=== PATIENT | female | born 1940 | race Caucasian/White ===

== ENCOUNTER → 2023-11-06 11:08 | Outpatient (REF) | payer MEDICARE, OTHER, SELFPAY | LOC: HWWDC 11:08 | PROVIDERS: ATTENDING PHYSICIAN Internal Medicine | DX: Z12.31 Encounter for screening mammogram for malignant neoplasm of breast (principal) | CPT/HCPCS: 77063; 77067 ==

== ENCOUNTER → 2023-11-18 14:38 | Outpatient (REF) | payer MEDICARE, OTHER, SELFPAY | LOC: RAD 14:38 | PROVIDERS: ATTENDING PHYSICIAN Internal Medicine | DX: I73.9 Peripheral vascular disease, unspecified (principal) | CPT/HCPCS: 93922; 93925 ==

== ENCOUNTER → 2024-06-17 13:42 | Outpatient (REF) | payer MEDICARE, OTHER, SELFPAY | LOC: RAD 13:42 | PROVIDERS: ATTENDING PHYSICIAN Surgery Vascular Surgery | DX: I77.9 Disorder of arteries and arterioles, unspecified (principal); Z13.6 Encounter for screening for cardiovascular disorders | CPT/HCPCS: 76770; 93922 ==

== ENCOUNTER → 2024-10-19 11:28 | Outpatient (REF) | payer MEDICARE, OTHER, SELFPAY ==
[2024-10-19 16:12] LABS: ALT (SGPT) 28 U/L (0-35); AST (SGOT) 39 U/L (14-36); Albumin 3.9 g/dl (3.5-5.0); Alkaline Phosphatase 135 U/L (38-126); Blood Urea Nitrogen 27 mg/dl (7-17); Calcium 9.7 mg/dl (8.4-10.2); Carbon Dioxide 30 mmol/L (22-30); Chloride 105 mmol/L (98-107); Glucose 81 mg/dl (70-99); Potassium 4.2 mmol/L (3.5-5.1); Sodium 142 mmol/L (135-145); Total Bilirubin 0.7 mg/dl (0.2-1.3); Total Protein 6.7 g/dl (6.3-8.2); eGFR > 60.00
[2024-10-19 16:16] LABS: % Basophils 0.5 % (0-2); % Eosinophils 1.8 % (0-6); % Immature Granulocytes 2.1 % (0-0.5); % Lymphocytes 16.1 % (20.5-51.1); % Monocytes 10.9 % (1.7-9.3); % Neutrophils 68.6 % (42.2-75.2); Absolute Eosinophils 0.2 10^3/uL (0-0.7); Absolute Immature Granulocytes 0.2 10^3/uL (0-0.05); Absolute Lymphocytes 1.4 10^3/uL (1.2-3.4); Absolute Monocytes 0.9 10^3/uL (0.1-0.6); Absolute Neutrophils 5.9 10^3/uL (1.4-6.5); Hematocrit 36.2 % (37.0-47.0); Hemoglobin 11.8 g/dL (12.0-16.0); Mean Corp Hgb Conc. 32.6 g/dL (33.0-37.0); Mean Corpuscular Hgb 29.1 pg (27.0-31.0); Mean Corpuscular Volume 89.2 fL (81.0-99.0); Nucleated Red Blood Cells % 0 %; Red Blood Cell Count 4.06 10^6/uL (4.20-5.40); Red Cell Dist. Width 14.6 % (11.5-14.5); White Blood Cell Count 8.6 10^3/uL (4.8-10.8)
[2024-10-19 16:42] LABS: TSH Reflex To Free T4 6.85 uIU/ml (0.47-4.68)
[2024-10-19 16:50] LABS: Platelet Count 97 10^3/uL (130-400)
[2024-10-19 16:51] LABS: Mean Platelet Volume 12.9 fL (7.4-10.4)
[2024-10-19 17:12] LABS: Free T4 1.47 ng/dl (0.78-2.19)
== END ==
LOC: HWLAB 11:28
PROVIDERS: ATTENDING PHYSICIAN Internal Medicine
DX: R41.0 Disorientation, unspecified (principal); R00.1 Bradycardia, unspecified; R53.1 Weakness; R60.0 Localized edema
CPT/HCPCS: 36415; 80053; 84439; 84443; 85025

== ENCOUNTER → 2024-11-02 15:53 | Outpatient (REF) | payer MEDICARE, OTHER, SELFPAY | LOC: RCS 15:53 | PROVIDERS: ATTENDING PHYSICIAN Internal Medicine | DX: R41.0 Disorientation, unspecified (principal); R00.1 Bradycardia, unspecified | CPT/HCPCS: 93306 ==

== ENCOUNTER → 2024-11-17 17:21 | Outpatient (REF) | payer MEDICARE, OTHER, SELFPAY | LOC: RAD 17:21 | PROVIDERS: ATTENDING PHYSICIAN Internal Medicine | DX: M79.661 Pain in right lower leg (principal); M79.89 Other specified soft tissue disorders; L97.311 Non-pressure chronic ulcer of right ankle limited to breakdown of skin | CPT/HCPCS: 93971 ==

== ENCOUNTER → 2024-12-02 09:39 | Outpatient (REF) | payer MEDICARE, OTHER, SELFPAY | LOC: RAD 09:39 | PROVIDERS: ATTENDING PHYSICIAN Surgery Vascular Surgery; FAMILY PHYSICIAN Internal Medicine | DX: I73.9 Peripheral vascular disease, unspecified (principal) | CPT/HCPCS: 93922 ==

== ENCOUNTER 2024-12-17 07:40 | Day surgery (SDC) | payer MEDICARE, OTHER, SELFPAY ==
[2024-12-17] VITALS (14 sets, daily range): BP systolic 134–167; BP diastolic 42–75; BMI 19.5
[2024-12-17 08:32] LABS: Hematocrit 35.4 % (37.0-47.0); Hemoglobin 11.5 g/dL (12.0-16.0); Mean Corp Hgb Conc. 32.5 g/dL (33.0-37.0); Mean Corpuscular Hgb 29.5 pg (27.0-31.0); Mean Corpuscular Volume 90.8 fL (81.0-99.0); Mean Platelet Volume 9.5 fL (7.4-10.4); Platelet Count 259 10^3/uL (130-400); Red Cell Dist. Width 14.8 % (11.5-14.5); White Blood Cell Count 8.8 10^3/uL (4.8-10.8)
[2024-12-17 08:45] LABS: INR 1.01; PT 13.6 Sec (11.4-14.6)
[2024-12-17 08:46] LABS: APTT 35.4 Sec (23.4-35.0)
[2024-12-17 09:22] LABS: Blood Urea Nitrogen 22 mg/dl (7-17); Calcium 9.3 mg/dl (8.4-10.2); Carbon Dioxide 27 mmol/L (22-30); Chloride 106 mmol/L (98-107); Estimated Creatinine Clearance 42 ml/min; Glucose 95 mg/dl (70-99); Potassium 4.4 mmol/L (3.5-5.1); Sodium 138 mmol/L (135-145); eGFR > 60.00
--- NOTE | 2024-12-17 10:52 | W.SUR.PREOP ---
Pre-Operative Surgical Note
-
I have examined this patient prior to the performance of the scheduled procedure.
The patient's condition is unchanged from the time of the current History and
Physical and the patient is able to undergo the scheduled procedure.
[2024-12-17] MEDS: NSS 100 IV (11:00)
[2024-12-17] MEDS: NSS 1000 IV (11:00)
[2024-12-17] MEDS: NSS 500 IV (14:27)
--- NOTE | 2024-12-17 14:37 | OR.RPT ---
Operative Report
Operative Report
Date of Operation: 12/17/2024
Pre Op Diagnosis: Bilateral medial and lateral malleolar wounds
Post Op Diagnosis: Bilateral medial and lateral malleolar wounds
Procedure:
1.) Selective catheterization of second-order lower extremity artery
2.) Diagnostic aortobiiliac arteriogram
3.) Diagnostic BILATERAL lower extremity arteriograms
4.) Ultrasound-Guided percutaneous access to the left common femoral artery
Surgeon: Joaquim Guzmán III, MD
Rn Wound: Adam Uribe MD, PGY5
Anesthesia: Sedation with local
Fluoroscopy:
5.4 min
31 mGy
8.26 gy.cm2
Complications: None
Estimated Blood Loss: Less than 20 cc
History and Indications for Procedure: 84-year-old female with bilateral medial and lateral malleolar ankle wounds
Procedure in Detail: Krista Garcia was correctly identified and placed supine on the operating table. After adequate induction of anesthesia the bilateral groins were prepped and draped in the usual sterile fashion. A timeout was performed with
the nursing and anesthesia staff confirming the patient's identity as well as the nature and laterality of the procedure.
The left common femoral artery was identified under ultrasound guidance. The artery was patent but calcified. The superior and inferior aspects of the femoral head were identified with radiographic guidance and marked at the skin level. The proposed
puncture site was infiltrated with local anesthesia. Under ultrasound guidance we accessed the left common femoral artery with a micropuncture needle and upsized to a 5 Fr sheath over a Bentson wire. The wire and a [employer] hook flush catheter were
advanced into the distal abdominal aorta and a diagnostic aorto-biiliac arteriogram was performed:
AORTO-ILIAC ARTERIOGRAM:
Aorta: Patent with no significant stenosis identified
Right common iliac artery: Patent. Calcified. No significant stenosis identified
Right external iliac artery: Patent with no significant stenosis identified
Left common iliac artery: Patent with no significant stenosis identified
Left external iliac artery: Patent with no significant stenosis identified
Under roadmap guidance using a Glidewire and the [employer] hook catheter we selected the right common iliac artery and then the external iliac artery. A catheter was tracked up and over the aortic bifurcation and placed in the distal external iliac
artery. A diagnostic right lower extremity arteriogram was then performed which demonstrated the following:
RIGHT LOWER EXTREMITY:
Common femoral artery: Patent with no significant stenosis identified
Profunda femoral artery: Patent with no significant stenosis identified
Superficial femoral artery: Patent. No significant stenosis identified
Popliteal artery: Patent. Mild stenosis focally above the knee. Mild stenosis behind the knee. Below the the knee segment patent with no stenosis identified
Anterior tibial artery: Patent at its origin but occluded shortly thereafter. No distal reconstitution identified
Tibioperoneal trunk: Patent
Peroneal artery: Patent to the ankle.
Posterior tibial artery: Widely patent with brisk flow and no stenosis identified. Continues into the foot to form plantar branches.
The catheter was pulled from the left femoral sheath. A left lower extremity arteriogram was then performed through the 5 Amharic sheath.
LEFT LOWER EXTREMITY:
Common femoral artery: Patent with no significant stenosis identified
Profunda femoral artery: Patent with no significant stenosis identified
Superficial femoral artery: Patent. Diffusely small diameter.
Popliteal artery: High-grade stenosis above the knee. Patent behind the knee and below the knee with no significant stenosis identified
Anterior tibial artery: Patent with sluggish flow. Diffusely small diameter.
Tibioperoneal trunk: Patent
Peroneal artery: Occluded
Posterior tibial artery: Dominant tibial artery vessel. No significant stenosis identified. Continues across the ankle to form plantar branches.
The sheath was pulled from the left femoral access and direct manual pressure was held over the puncture site until hemostasis was achieved. A sterile dressing was applied. The patient tolerated the procedure well and was taken to the recovery
area in stable condition.
Attestation: I was present and responsible for the entire procedure.
Signed:
Joaquim Guzmán III, MD
Vascular Surgery
[facility]
== END 2024-12-17 17:15 | disposition home or self-care (01) ==
LOC: CATH 07:40
PROVIDERS: ATTENDING PHYSICIAN Surgery Vascular Surgery; PRIMARYCARE PHYSICIAN Internal Medicine
DX: I70.243 Atherosclerosis of native arteries of left leg with ulceration of ankle (principal); L97.329 Non-pressure chronic ulcer of left ankle with unspecified severity; I70.233 Atherosclerosis of native arteries of right leg with ulceration of ankle; L97.319 Non-pressure chronic ulcer of right ankle with unspecified severity
CPT/HCPCS: 36246; 75716; 75625; 75710; 80048; 85027; 85610; 85730; C1769; C1894; Q9967

== ENCOUNTER → 2024-12-23 12:28 | Outpatient (REF) | payer MEDICARE, OTHER, SELFPAY | LOC: WOUND 12:28 | PROVIDERS: ATTENDING PHYSICIAN Surgery; FAMILY PHYSICIAN Internal Medicine | DX: I70.243 Atherosclerosis of native arteries of left leg with ulceration of ankle (principal); L97.324 Non-pressure chronic ulcer of left ankle with necrosis of bone; I70.233 Atherosclerosis of native arteries of right leg with ulceration of ankle; L97.314 Non-pressure chronic ulcer of right ankle with necrosis of bone; L97.221 Non-pressure chronic ulcer of left calf limited to breakdown of skin; I73.9 Peripheral vascular disease, unspecified; Z72.0 Tobacco use | CPT/HCPCS: 73610; 99204 ==

== ENCOUNTER → 2025-01-06 11:11 | Outpatient (REF) | payer MEDICARE, OTHER, SELFPAY | LOC: WOUND 11:11 | PROVIDERS: ATTENDING PHYSICIAN Surgery; FAMILY PHYSICIAN Internal Medicine | DX: I70.233 Atherosclerosis of native arteries of right leg with ulceration of ankle (principal); L97.314 Non-pressure chronic ulcer of right ankle with necrosis of bone; L97.324 Non-pressure chronic ulcer of left ankle with necrosis of bone; Z72.0 Tobacco use | CPT/HCPCS: 99213 ==

== ENCOUNTER 2025-01-07 07:45 | Day surgery (SDC) | payer MEDICARE, OTHER, SELFPAY ==
[2025-01-07] VITALS (39 sets, daily range): BP systolic 119–180; BP diastolic 47–73; BMI 21.6
[2025-01-07] MEDS: NSS 161 ML IV (08:29)
--- NOTE | 2025-01-07 12:14 | W.SUR.POST ---
Surgical Immediate Post Op
Note
Pre Op Diagnosis: Peripheral arterial disease
Post Op Diagnosis: Peripheral arterial disease
Procedure Performed: Left lower extremity angiogram, intravascular lithotripsy with javelin, balloon angioplasty of short segment SFA and proximal AT
Primary Surgeon: Joaquim Guzmán III, MD
Secondary Surgeons: Ricardo Tatum MD
Anesthesia: see anesthesia report
Estimated Blood Loss: 2 cc
Fluids: see anesthesia report
Drains/Shunts: None
Specimens/Cultures: None
Doppler/Duplex/Angio (Y/N):Y
Complications: None
Operative Findings: Left lower extremity angiogram, intravascular lithotripsy with javelin, balloon angioplasty of short segment SFA and proximal AT.
[2025-01-07] MEDS: NSS 1000 IV (13:20)
[2025-01-07] MEDS: LOW STRENGTH ASPIRIN 81 MG PO (14:41)
--- NOTE | 2025-01-07 18:41 | W.PN.UPDATE ---
Update Note
Progress Note Update
Patient with noted bleeding from right groin puncture site, nursing staff present and immediately placed pressure. Small hematoma noted, however soft and controlled with pressure held for an additional 30 minutes. No palpable pulsatile mass or
active bleeding following manual pressure hold. Will admit patient for overnight observation, restart 6-hour bedrest and head of bed restrictions from new hemostasis point, will obtain right groin ultrasound in a.m. to ensure no pseudoaneurysm
prior to discharge. Reviewed plan with attending Dr. Joaquim Guzmán who agrees
[2025-01-07] MEDS: APRESOLINE 5 MG IV (19:58)
[2025-01-07] MEDS: HEPARIN 5000 UNITS SC (19:59)
--- NOTE | 2025-01-07 20:13 | OR.RPT ---
Operative Report
Operative Report
Date of Operation: 01/07/2025
Pre Op Diagnosis:
1. Nonhealing left ankle ulcers with associated pain
2. [place] artery atherosclerosis, left lower extremity
Post Op Diagnosis:
1. Nonhealing left ankle ulcers with associated pain
2. [place] artery atherosclerosis, left lower extremity
Procedure:
1.) Intravascular lithotripsy to left above-knee popliteal artery stenosis (Shockwave Javelin)
2.) Intravascular lithotripsy to left anterior tibial artery stenosis (Shockwave Javelin)
3.) Drug-coated balloon angioplasty to left above-knee popliteal artery (4 mm x 80 mm Lutonix DCB)
4.) Balloon angioplasty to left anterior tibial artery (2.5 mm x 100 mm)
5.) Intravascular ultrasound to left superficial femoral artery, popliteal artery and anterior tibial artery
6.) Diagnostic aortobiiliac arteriogram
7.) Diagnostic left lower extremity arteriogram
8.) Ultrasound-Guided percutaneous access to the right common femoral artery
Surgeon: Joaquim Guzmán III, MD
Group Segment Consultant: Ricardo Tatum MD PGY-6
Anesthesia: Sedation with local
Fluoroscopy:
29.3 min
100 mGy
25.26 gy.cm2
Complications: None
Estimated Blood Loss: Less than 20 cc
History and Indications for Procedure: 84-year-old female with nonhealing left ankle ulcers.
Procedure in Detail: Krista Garcia was correctly identified and placed supine on the operating table. After adequate induction of anesthesia the bilateral groins were prepped and draped in the usual sterile fashion. A timeout was performed with
the nursing and anesthesia staff confirming the patient's identity as well as the nature and laterality of the procedure.
The right common femoral artery was identified under ultrasound guidance. The artery was patent. The superior and inferior aspects of the femoral head were identified with radiographic guidance and marked at the skin level. The proposed puncture
site was infiltrated with local anesthesia. Under ultrasound guidance we accessed the right common femoral artery with a micropuncture needle and upsized to a 5 Fr sheath over a Pagar[employer]me wire. The wire and a [employer]pher[employer] hook flush catheter were
advanced into the distal abdominal aorta and a diagnostic aorto-biiliac arteriogram was performed:
AORTO-ILIAC ARTERIOGRAM:
Aorta: Calcified but patent with no significant stenosis identified
Right common iliac artery: Calcified. Patent with no significant stenosis identified
Right external iliac artery: Calcified. Small diameter but patent.
Left common iliac artery: Calcified with mild to moderate stenosis
Left external iliac artery: Patent with no significant stenosis identified
Under roadmap guidance using a Glidewire and the Shepherds hook catheter we selected the left common iliac artery and then the external iliac artery. A catheter was tracked up and over the aortic bifurcation and placed in the distal external iliac
artery. A diagnostic left lower extremity arteriogram was then performed which demonstrated the following:
LEFT LOWER EXTREMITY:
Common femoral artery: Patent with no significant stenosis identified
Profunda femoral artery: Patent with no stenosis identified
Superficial femoral artery: Diffusely small diameter uniformly throughout. No significant focal stenosis identified
Popliteal artery: High-grade stenosis above the knee, calcified. Behind the knee and below the knee patent with no stenosis identified
Anterior tibial artery: Patent but diffusely small diameter and high-grade proximal stenosis
Tibioperoneal trunk: Patent
Peroneal artery: Occluded
Posterior tibial artery: Patent as the dominant tibial artery runoff with no significant stenosis identified
ENDOVASCULAR INTERVENTION: Systemic heparin was administered. Exchanged out for a 6 Fr 45 cm sheath over a Storq wire. Selected the superficial femoral artery under roadmap guidance with Quick[place] catheter and glidewire. The above-knee popliteal
artery stenosis was crossed with a Quickcross and Glidewire. Following this the anterior tibial artery was selected with the Quickcross and a 0.014 wire. The wire was advanced across the proximal anterior tibial artery stenosis and positioned in
the mid anterior tibial artery.
The intravascular ultrasound catheter was then brought into position. Intravascular ultrasound was performed on the superficial femoral artery, popliteal artery and anterior tibial artery. Reference diameter measurements were made. Lesion
locations were confirmed. The catheter was then removed.
Due to the heavily calcified nature of the above-knee popliteal artery and anterior tibial artery disease and in an effort to successfully cross the lesion, modify the calcium and achieve luminal gain with endovascular intervention I elected to
proceed with intravascular lithotripsy with a Shockwave Javelin catheter. The Javelin catheter was brought into position under radiographic guidance over the 0.014 wire. The Javelin catheter was advanced through the popliteal artery and across the
disease while simultaneously delivering lithotripsy pulses. The Javelin catheter was then advanced through the proximal anterior tibial artery stenosis. 120 pulses were delivered. Subsequent arteriogram demonstrated improved luminal diameter.
I followed this with a 2 mm x 60 mm angioplasty balloon across the proximal anterior tibial artery. This was positioned in the desired location under roadmap guidance and inflated to nominal pressure for 3-minute inflation. I then followed this
with a 2.5 mm x 100 mm angioplasty balloon across the proximal anterior tibial artery. Again the balloon was inflated to nominal pressure in the desired location and held in place for 3-minute inflation. Subsequent arteriogram demonstrated an
excellent technical result with a patent anterior tibial artery, brisk flow and no significant residual stenosis identified.
I used a 4 mm x 80 mm Lutonix drug-coated balloon to treat the above-knee popliteal artery following Javelin. This balloon was brought into position under roadmap guidance, inflated to nominal pressure and held in place for 3-minute inflation.
Subsequent arteriogram demonstrated an excellent technical result with widely patent popliteal artery with no significant residual stenosis identified.
COMPLETION ARTERIOGRAM: Excellent technical result. Brisk flow through patent superficial femoral artery and popliteal artery. Two-vessel tibial artery runoff via the anterior tibial artery and posterior tibial artery with flow into the foot via
each.
Satisfied with this result we concluded the procedure. The sheath tip was pulled back into the right external iliac artery. Protamine was administered. The sheath was secured in place with the plan to pull it in the recovery room.
The patient tolerated the procedure well and was taken to the recovery area in stable condition.
Attestation: I was present and responsible for the entire procedure.
Signed:
Joaquim Guzmán III, MD
Vascular Surgery
[facility]
[2025-01-07] MEDS: ROXICODONE 5 MG PO (22:13)
[2025-01-08] VITALS (10 sets, daily range): BP systolic 111–146; BP diastolic 39–70
--- NOTE | 2025-01-08 01:16 | PTCARENOTE ---
Rec'd pt from cardiac cath tech. Pt AAO*3, BP elevated with systolic in the 180's on arrival, and SR on TELE monitor. Dr. Guzmán notified and rec'd order for hydralazine (given as ordered). Pt reported pain in L foot, PRN oxycodone given as ordered. Pt kept
on bedrest and agreed to activity restrictions. Admission data collected. PT resting with call gunter in reach, see MAR and flowchart for full pt care and assessment.
--- NOTE | 2025-01-08 08:03 | W.PN.VS ---
Today's Communication / Plan
-
Patient seen and examined at bedside with attending Dr. Medina, below plan reviewed with attending.
Assessment/Plan
-
Assessment: 84-year-old female POD #1
1.) Intravascular lithotripsy to left above-knee popliteal artery stenosis (Shockwave Javelin)
2.) Intravascular lithotripsy to left anterior tibial artery stenosis (Shockwave Javelin)
3.) Drug-coated balloon angioplasty to left above-knee popliteal artery (4 mm x 80 mm Lutonix DCB)
4.) Balloon angioplasty to left anterior tibial artery (2.5 mm x 100 mm)
5.) Intravascular ultrasound to left superficial femoral artery, popliteal artery and anterior tibial artery
6.) Diagnostic aortobiiliac arteriogram
7.) Diagnostic left lower extremity arteriogram
8.) Ultrasound-Guided percutaneous access to the right common femoral artery
Patient had episode of postop puncture site bleeding, with scant hematoma, additional pressure held with hemostasis
Plan:
Repeat right groin ultrasound, if no evidence of pseudoaneurysm or active extravasation patient is eligible for discharge home
Subjective Data
-
Date of Service: January 08, 2025
Patient seen and examined at chair side, offers no complaints. Denies nausea, vomiting, fever, and chills. Denies pain at right groin site. Eager for next steps for discharge to home.
Objective Data
-
Vital Signs
Temp Pulse Resp BP Pulse Ox
97.8 F 91 18 130/64 96
01/08/25 03:34 01/08/25 03:34 01/08/25 03:34 01/08/25 03:34 01/08/25 05:26
Intake and Output
01/07/25 01/08/25 01/09/25
06:59 06:59 06:59
Intake Total 1521 / 1521
Output Total 1150 / 1150
Balance 371 / 371
Intake:
Oral fluids 960 / 960
IV fluids (Total) 561 / 561
NSS 400 / 400
Output:
Urine, Voided 1149
Other:
Number of unmeasured voidings 2
How many times incontinent 1
MODERATE amount urine
Lab Results
01/03/25 06:00
Calcium Cancelled 01/03/25 06:00
Physical Exam
-
No apparent distress, resting in chair comfortably
No tachycardia
no dyspnea on room air
ABD flat, nontender, nondistended
Right groin puncture site clean, dry, and intact, scant area of small residual hematoma remains, soft, no pulsatile mass, no tenderness to palpation
[2025-01-08 09:11] LABS: Hematocrit 34.6 % (37.0-47.0); Hemoglobin 11.0 g/dL (12.0-16.0); Mean Corp Hgb Conc. 31.8 g/dL (33.0-37.0); Mean Corpuscular Volume 91.3 fL (81.0-99.0); Platelet Count 285 10^3/uL (130-400); Red Cell Dist. Width 15.0 % (11.5-14.5)
[2025-01-08] MEDS: LIPITOR 80 MG PO (09:24)
[2025-01-08] MEDS: THERAGRAN 1 TABLET PO (09:24)
[2025-01-08] MEDS: HEPARIN 5000 UNITS SC (09:24)
[2025-01-08] MEDS: OSCAL 500 + D 1000 MG PO (09:25)
[2025-01-08] MEDS: LOW STRENGTH ASPIRIN 81 MG PO (09:25)
[2025-01-08] MEDS: PLAVIX 75 MG PO (09:25)
--- NOTE | 2025-01-08 09:51 | PTCARENOTE ---
received patient this am sitting up in chair. right groin dsg. D/I, distal pulse by Doppler only. patient will have U/S of groin before discharge as per Gwendolyn [facility] of V[facility]. monitor shows NSR, VSS . call gunter within reach.
--- NOTE | 2025-01-08 10:48 | PTCARENOTE ---
U/S completed at bedside, TT .
[2025-01-08] MEDS: TYLENOL 650 MG PO (13:36)
--- NOTE | 2025-01-08 13:39 | PTCARENOTE ---
patient c/o bilat. lower ext. pain especially the left leg, Tylenol po given as ordered.
--- NOTE | 2025-01-08 15:45 | PTCARENOTE ---
D/C instructions given to patient and daughter, both verbalizes understanding. INT D/C'd, telemetry D/C'd, personal belongings packed and sent home with patient. D/C to home via wc accompanied by staff.
== END 2025-01-08 15:48 | disposition home or self-care (01) ==
LOC: CATH 07:45
PROVIDERS: Nurse Practitioner; ATTENDING PHYSICIAN Surgery Vascular Surgery; OTHER PHYSICIAN Internal Medicine Cardiovascular Disease; PRIMARYCARE PHYSICIAN Internal Medicine
DX: I70.243 Atherosclerosis of native arteries of left leg with ulceration of ankle (principal); L97.329 Non-pressure chronic ulcer of left ankle with unspecified severity
CPT/HCPCS: C9764; C9772; 37252; 75625; 75710; 85027; 93926; C1725; C1753; C1769; C1894; Q9967

== ENCOUNTER → 2025-01-13 11:12 | Outpatient (REF) | payer MEDICARE, OTHER, SELFPAY | LOC: WOUND 11:12 | PROVIDERS: ATTENDING PHYSICIAN Surgery; FAMILY PHYSICIAN Internal Medicine | DX: I70.233 Atherosclerosis of native arteries of right leg with ulceration of ankle (principal); L97.314 Non-pressure chronic ulcer of right ankle with necrosis of bone; L89.622 Pressure ulcer of left heel, stage 2; I70.243 Atherosclerosis of native arteries of left leg with ulceration of ankle; L97.324 Non-pressure chronic ulcer of left ankle with necrosis of bone; I73.9 Peripheral vascular disease, unspecified; Z72.0 Tobacco use; I87.2 Venous insufficiency (chronic) (peripheral) | CPT/HCPCS: 97597; 99213 ==

== ENCOUNTER → 2025-01-20 11:18 | Outpatient (REF) | payer MEDICARE, OTHER, SELFPAY | LOC: WOUND 11:18 | PROVIDERS: ATTENDING PHYSICIAN Surgery; FAMILY PHYSICIAN Internal Medicine | DX: I70.233 Atherosclerosis of native arteries of right leg with ulceration of ankle (principal); L97.314 Non-pressure chronic ulcer of right ankle with necrosis of bone; L89.622 Pressure ulcer of left heel, stage 2; I70.243 Atherosclerosis of native arteries of left leg with ulceration of ankle; L97.324 Non-pressure chronic ulcer of left ankle with necrosis of bone; Z72.0 Tobacco use; I87.2 Venous insufficiency (chronic) (peripheral) | CPT/HCPCS: 99213 ==

== ENCOUNTER → 2025-01-27 10:39 | Outpatient (REF) | payer MEDICARE, OTHER, SELFPAY | LOC: WOUND 10:39 | PROVIDERS: ATTENDING PHYSICIAN Surgery; FAMILY PHYSICIAN Internal Medicine | DX: I70.233 Atherosclerosis of native arteries of right leg with ulceration of ankle (principal); L97.314 Non-pressure chronic ulcer of right ankle with necrosis of bone; I70.243 Atherosclerosis of native arteries of left leg with ulceration of ankle; L97.324 Non-pressure chronic ulcer of left ankle with necrosis of bone; Z72.0 Tobacco use; I87.2 Venous insufficiency (chronic) (peripheral) | CPT/HCPCS: 11042 ==

== ENCOUNTER → 2025-01-31 13:47 | Outpatient (REF) | payer MEDICARE, OTHER, SELFPAY | LOC: DHVS 13:47 | PROVIDERS: ATTENDING PHYSICIAN Surgery Vascular Surgery; FAMILY PHYSICIAN Internal Medicine | DX: I73.9 Peripheral vascular disease, unspecified (principal) | CPT/HCPCS: 93922; 93925 ==

== ENCOUNTER → 2025-02-03 10:44 | Outpatient (REF) | payer MEDICARE, OTHER, SELFPAY ==
[2025-02-03 13:42] LABS: Blood Urea Nitrogen 32 mg/dl (7-17); Calcium 9.9 mg/dl (8.4-10.2); Carbon Dioxide 28 mmol/L (22-30); Chloride 106 mmol/L (98-107); Glucose 74 mg/dl (70-99); Potassium 5.6 mmol/L (3.5-5.1); Sodium 139 mmol/L (135-145); eGFR > 60.00
== END ==
LOC: REG 10:44
PROVIDERS: ATTENDING PHYSICIAN Surgery; FAMILY PHYSICIAN Internal Medicine
DX: R60.0 Localized edema (principal)
CPT/HCPCS: 36415; 80048; 99213

== ENCOUNTER → 2025-02-10 11:14 | Outpatient (REF) | payer MEDICARE, OTHER, SELFPAY | LOC: WOUND 11:14 | PROVIDERS: ATTENDING PHYSICIAN Surgery; FAMILY PHYSICIAN Internal Medicine | DX: I70.233 Atherosclerosis of native arteries of right leg with ulceration of ankle (principal); L97.314 Non-pressure chronic ulcer of right ankle with necrosis of bone; L89.622 Pressure ulcer of left heel, stage 2; I70.243 Atherosclerosis of native arteries of left leg with ulceration of ankle; Z72.0 Tobacco use; I87.2 Venous insufficiency (chronic) (peripheral) | CPT/HCPCS: 99213 ==

== ENCOUNTER → 2025-02-17 13:03 | Outpatient (REF) | payer MEDICARE, OTHER, SELFPAY | LOC: RAD 13:03 | PROVIDERS: ATTENDING PHYSICIAN Surgery; FAMILY PHYSICIAN Internal Medicine | DX: I70.233 Atherosclerosis of native arteries of right leg with ulceration of ankle (principal); I87.2 Venous insufficiency (chronic) (peripheral) | CPT/HCPCS: 93970 ==

== ENCOUNTER → 2025-02-18 14:11 | Outpatient (REF) | payer MEDICARE, OTHER, SELFPAY | LOC: WOUND 14:11 | PROVIDERS: ATTENDING PHYSICIAN Surgery; FAMILY PHYSICIAN Internal Medicine | DX: I70.233 Atherosclerosis of native arteries of right leg with ulceration of ankle (principal); L97.314 Non-pressure chronic ulcer of right ankle with necrosis of bone; L89.622 Pressure ulcer of left heel, stage 2; I70.243 Atherosclerosis of native arteries of left leg with ulceration of ankle; L97.324 Non-pressure chronic ulcer of left ankle with necrosis of bone; I73.9 Peripheral vascular disease, unspecified; Z72.0 Tobacco use; I87.2 Venous insufficiency (chronic) (peripheral) | CPT/HCPCS: 11042 ==

== ENCOUNTER → 2025-03-03 13:07 | Outpatient (REF) | payer MEDICARE, OTHER, SELFPAY | LOC: WOUND 13:07 | PROVIDERS: ATTENDING PHYSICIAN Surgery; FAMILY PHYSICIAN Internal Medicine | DX: I70.233 Atherosclerosis of native arteries of right leg with ulceration of ankle (principal); L97.314 Non-pressure chronic ulcer of right ankle with necrosis of bone; L89.622 Pressure ulcer of left heel, stage 2; I70.243 Atherosclerosis of native arteries of left leg with ulceration of ankle; L97.324 Non-pressure chronic ulcer of left ankle with necrosis of bone; Z72.0 Tobacco use; I87.2 Venous insufficiency (chronic) (peripheral) | CPT/HCPCS: 99213 ==

== ENCOUNTER → 2025-03-10 14:39 | Outpatient (REF) | payer MEDICARE, OTHER, SELFPAY | LOC: WOUND 14:39 | PROVIDERS: ATTENDING PHYSICIAN Surgery; FAMILY PHYSICIAN Internal Medicine | DX: I70.233 Atherosclerosis of native arteries of right leg with ulceration of ankle (principal); L97.314 Non-pressure chronic ulcer of right ankle with necrosis of bone; I70.243 Atherosclerosis of native arteries of left leg with ulceration of ankle; L97.324 Non-pressure chronic ulcer of left ankle with necrosis of bone; I87.2 Venous insufficiency (chronic) (peripheral) | CPT/HCPCS: 11042 ==

== ENCOUNTER → 2025-03-17 11:27 | Outpatient (REF) | payer MEDICARE, OTHER, SELFPAY | LOC: WOUND 11:27 | PROVIDERS: ATTENDING PHYSICIAN Surgery; FAMILY PHYSICIAN Internal Medicine; OTHER PHYSICIAN Chiropractor | DX: I70.233 Atherosclerosis of native arteries of right leg with ulceration of ankle (principal); L97.314 Non-pressure chronic ulcer of right ankle with necrosis of bone; I70.243 Atherosclerosis of native arteries of left leg with ulceration of ankle; L97.324 Non-pressure chronic ulcer of left ankle with necrosis of bone; I87.2 Venous insufficiency (chronic) (peripheral); Z72.0 Tobacco use | CPT/HCPCS: 99213 ==

== ENCOUNTER → 2025-03-23 11:49 | Outpatient (REF) | payer MEDICARE, OTHER, SELFPAY ==
[2025-03-23 18:02] LABS: Blood Urea Nitrogen 30 mg/dl (7-17); Calcium 9.6 mg/dl (8.4-10.2); Carbon Dioxide 27 mmol/L (22-30); Chloride 107 mmol/L (98-107); Glucose 98 mg/dl (70-99); Potassium 4.6 mmol/L (3.5-5.1); Sodium 139 mmol/L (135-145); eGFR > 60.00
== END ==
LOC: HWLAB 11:49
PROVIDERS: ATTENDING PHYSICIAN Internal Medicine
DX: E87.5 Hyperkalemia (principal)
CPT/HCPCS: 36415; 80048

== ENCOUNTER → 2025-03-31 14:10 | Outpatient (REF) | payer MEDICARE, OTHER, SELFPAY | LOC: WOUND 14:10 | PROVIDERS: ATTENDING PHYSICIAN Surgery; FAMILY PHYSICIAN Internal Medicine | DX: I70.233 Atherosclerosis of native arteries of right leg with ulceration of ankle (principal); L97.314 Non-pressure chronic ulcer of right ankle with necrosis of bone; L97.222 Non-pressure chronic ulcer of left calf with fat layer exposed; I70.243 Atherosclerosis of native arteries of left leg with ulceration of ankle; L97.324 Non-pressure chronic ulcer of left ankle with necrosis of bone; Z72.0 Tobacco use; I87.2 Venous insufficiency (chronic) (peripheral) | CPT/HCPCS: 11042; 99213 ==

== ENCOUNTER → 2025-04-07 11:07 | Outpatient (REF) | payer MEDICARE, OTHER, SELFPAY | LOC: WOUND 11:07 | PROVIDERS: ATTENDING PHYSICIAN Surgery; FAMILY PHYSICIAN Internal Medicine | DX: I70.233 Atherosclerosis of native arteries of right leg with ulceration of ankle (principal); L97.314 Non-pressure chronic ulcer of right ankle with necrosis of bone; L97.222 Non-pressure chronic ulcer of left calf with fat layer exposed; I70.243 Atherosclerosis of native arteries of left leg with ulceration of ankle; L97.324 Non-pressure chronic ulcer of left ankle with necrosis of bone; Z72.0 Tobacco use; I87.2 Venous insufficiency (chronic) (peripheral) | CPT/HCPCS: 11042 ==

== ENCOUNTER → 2025-04-21 13:09 | Outpatient (REF) | payer MEDICARE, OTHER, SELFPAY | LOC: WOUND 13:09 | PROVIDERS: ATTENDING PHYSICIAN Surgery; FAMILY PHYSICIAN Internal Medicine | DX: I70.233 Atherosclerosis of native arteries of right leg with ulceration of ankle (principal); L97.314 Non-pressure chronic ulcer of right ankle with necrosis of bone; L97.222 Non-pressure chronic ulcer of left calf with fat layer exposed; I70.243 Atherosclerosis of native arteries of left leg with ulceration of ankle; L97.324 Non-pressure chronic ulcer of left ankle with necrosis of bone; I87.2 Venous insufficiency (chronic) (peripheral); Z72.0 Tobacco use | CPT/HCPCS: 11042 ==

== ENCOUNTER → 2025-04-28 11:13 | Outpatient (REF) | payer MEDICARE, OTHER, SELFPAY | LOC: WOUND 11:13 | PROVIDERS: ATTENDING PHYSICIAN Surgery; FAMILY PHYSICIAN Internal Medicine | DX: I70.233 Atherosclerosis of native arteries of right leg with ulceration of ankle (principal); L97.314 Non-pressure chronic ulcer of right ankle with necrosis of bone; L97.222 Non-pressure chronic ulcer of left calf with fat layer exposed; I70.243 Atherosclerosis of native arteries of left leg with ulceration of ankle; L97.324 Non-pressure chronic ulcer of left ankle with necrosis of bone; Z72.0 Tobacco use; I87.2 Venous insufficiency (chronic) (peripheral) | CPT/HCPCS: 73610; 99213 ==

== ENCOUNTER 2025-05-05 11:15 | Outpatient (REF) | payer MEDICARE, OTHER, SELFPAY | END 2025-05-05 23:59 | disposition home or self-care (01) | LOC: WOUND 11:15 | PROVIDERS: ATTENDING PHYSICIAN Surgery; FAMILY PHYSICIAN Internal Medicine | DX: I70.233 Atherosclerosis of native arteries of right leg with ulceration of ankle (principal); L97.314 Non-pressure chronic ulcer of right ankle with necrosis of bone; L97.222 Non-pressure chronic ulcer of left calf with fat layer exposed; L97.324 Non-pressure chronic ulcer of left ankle with necrosis of bone; I70.243 Atherosclerosis of native arteries of left leg with ulceration of ankle; I87.2 Venous insufficiency (chronic) (peripheral); Z72.0 Tobacco use | CPT/HCPCS: 11042 ==

== ENCOUNTER 2025-05-12 14:10 | Outpatient (REF) | payer MEDICARE, OTHER, SELFPAY | END 2025-05-12 23:59 | disposition home or self-care (01) | LOC: WOUND 14:10 | PROVIDERS: ATTENDING PHYSICIAN Surgery; FAMILY PHYSICIAN Internal Medicine | DX: I70.233 Atherosclerosis of native arteries of right leg with ulceration of ankle (principal); L03.115 Cellulitis of right lower limb; L97.314 Non-pressure chronic ulcer of right ankle with necrosis of bone; L97.222 Non-pressure chronic ulcer of left calf with fat layer exposed; I70.243 Atherosclerosis of native arteries of left leg with ulceration of ankle; L97.324 Non-pressure chronic ulcer of left ankle with necrosis of bone; I73.9 Peripheral vascular disease, unspecified; Z72.0 Tobacco use; I87.2 Venous insufficiency (chronic) (peripheral) | CPT/HCPCS: 99214 ==

== ENCOUNTER 2025-06-02 13:14 | Outpatient (REF) | payer MEDICARE, OTHER, SELFPAY | END 2025-06-02 23:59 | disposition home or self-care (01) | LOC: WOUND 13:14 | PROVIDERS: ATTENDING PHYSICIAN Registered Nurse; FAMILY PHYSICIAN Internal Medicine | DX: I70.233 Atherosclerosis of native arteries of right leg with ulceration of ankle (principal); L03.115 Cellulitis of right lower limb; L97.314 Non-pressure chronic ulcer of right ankle with necrosis of bone; L97.222 Non-pressure chronic ulcer of left calf with fat layer exposed; I70.243 Atherosclerosis of native arteries of left leg with ulceration of ankle; L97.324 Non-pressure chronic ulcer of left ankle with necrosis of bone; I73.9 Peripheral vascular disease, unspecified; I87.2 Venous insufficiency (chronic) (peripheral); Z72.0 Tobacco use | CPT/HCPCS: 93922; 93925; 97597 ==

== ENCOUNTER 2025-06-09 11:19 | Outpatient (REF) | payer MEDICARE, OTHER, SELFPAY | END 2025-06-09 23:59 | disposition home or self-care (01) | LOC: WOUND 11:19 | PROVIDERS: ATTENDING PHYSICIAN Registered Nurse; FAMILY PHYSICIAN Internal Medicine | DX: I70.233 Atherosclerosis of native arteries of right leg with ulceration of ankle (principal); L03.115 Cellulitis of right lower limb; L97.314 Non-pressure chronic ulcer of right ankle with necrosis of bone; L97.222 Non-pressure chronic ulcer of left calf with fat layer exposed; I70.243 Atherosclerosis of native arteries of left leg with ulceration of ankle; L97.324 Non-pressure chronic ulcer of left ankle with necrosis of bone; I73.9 Peripheral vascular disease, unspecified; Z72.0 Tobacco use; I87.2 Venous insufficiency (chronic) (peripheral) | CPT/HCPCS: 99213 ==

== ENCOUNTER 2025-06-21 11:11 | Outpatient (REF) | payer MEDICARE, OTHER, SELFPAY | END 2025-06-21 23:59 | disposition home or self-care (01) | LOC: WOUND 11:11 | PROVIDERS: ATTENDING PHYSICIAN Registered Nurse; FAMILY PHYSICIAN Internal Medicine | DX: I70.233 Atherosclerosis of native arteries of right leg with ulceration of ankle (principal); L03.115 Cellulitis of right lower limb; L97.314 Non-pressure chronic ulcer of right ankle with necrosis of bone; L97.222 Non-pressure chronic ulcer of left calf with fat layer exposed; I70.243 Atherosclerosis of native arteries of left leg with ulceration of ankle; L97.324 Non-pressure chronic ulcer of left ankle with necrosis of bone; Z72.0 Tobacco use; I87.2 Venous insufficiency (chronic) (peripheral) | CPT/HCPCS: 99213 ==

== ENCOUNTER → 2025-06-22 14:18 | Outpatient (REF) | payer MEDICARE, OTHER, SELFPAY | LOC: HWWDC 14:18 | PROVIDERS: ATTENDING PHYSICIAN Internal Medicine | DX: Z12.31 Encounter for screening mammogram for malignant neoplasm of breast (principal) | CPT/HCPCS: 77063; 77067 ==